=== PATIENT | male | born 1970 | race American Indian/Alaskan Native ===

== ENCOUNTER 2021-06-18 14:15 | Emergency (ER) | payer SELFPAY | END 2021-06-18 15:55 | LOC: ED 14:15 | DX: M79.2 Neuralgia and neuritis, unspecified (principal); Z53.21 Procedure and treatment not carried out due to patient leaving prior to being seen by health care provider ==

== ENCOUNTER 2021-10-09 03:06 | Emergency (ER) | payer SELFPAY ==
[2021-10-09 03:11] VITALS: BP 154/105
[2021-10-09] MEDS ORDERED: HYDROcodone/ACETAMINOPHEN 5-325 MG TAB PO ONE (04:16)
--- NOTE | 2021-10-09 04:27 | Emergency Department Report ---
ED General Adult HPI - General Chief complaint: Extremity Problem,Nontraumatic Stated complaint: PAIN Time Seen by Provider: 10/09/21 04:16 Source: patient Mode of arrival: Ambulatory Limitations: No Limitations - History of Present Illness Initial comments: Is a 51-year-old male with a history of hypertension and diabetes type 2 with diabetic neuropathy generally controlled by gabapentin. Patient has primary care doctor follow-up at the [facility]. Patient complains tonight of bilateral lower extremity burning and tingling radiating to bilateral feet rated at 5/10. Patient states he took a 1 gabapentin but not improving pain. Patient denies fall injury or trauma. There is no weakness no paralysis. Patient drove self to ED patient alert oriented x3 patient is amatory with steady gait and no other complaint. States cannot see [facility] until Thursday. - Related Data Home Medications Medication Instructions Recorded Confirmed Last Taken Loratadine (Nf) [Claritin] 10 mg PO DAILY 10/26/14 10/26/14 Unknown Previous Rx's Medication Instructions Recorded Last Taken Type Acetaminophen/Codeine [Tylenol #3] 1 tab PO Q6H PRN #15 tab 10/26/14 Unknown Rx Amoxicillin [Amoxicillin TAB] 875 mg PO BID #20 tablet 10/26/14 Unknown Rx Fluticasone [Flonase] 1 spray NS QDAY #1 bottle 10/26/14 Unknown Rx Acetaminophen/Codeine [Tylenol 1 tab PO Q6H PRN #12 tab 10/09/21 Unknown Rx /Codeine # 3 tab] Allergies Allergy/AdvReac Type Severity Reaction Status Date / Time azithromycin [From Zithromax] Allergy Shortness Verified 10/26/14 12:47 of Breath erythromycin base Allergy tachycardia Verified 10/26/14 11:25 ED Review of Systems ROS: Stated complaint: PAIN Other details as noted in HPI Constitutional: denies: chills, fever Eyes: denies: eye pain, eye discharge, vision change ENT: denies: ear pain, throat pain Respiratory: denies: cough, shortness of breath, wheezing Cardiovascular: denies: chest pain, palpitations Endocrine: no symptoms reported Gastrointestinal: denies: abdominal pain, nausea, diarrhea Genitourinary: denies: urgency, dysuria Musculoskeletal: arthralgia, myalgia. denies: back pain, joint swelling Skin: denies: rash, lesions Neurological: denies: headache, weakness, numbness, paresthesias, confusion, vertigo Psychiatric: denies: anxiety, depression Hematological/Lymphatic: denies: easy bleeding, easy bruising ED Past Medical Hx - Past Medical History Hx Hypertension: Yes Hx Diabetes: Yes Additional medical history: Neuropathy - Surgical History Additional Surgical History: hernia - Social History Smoking Status: Light Tobacco Smoker Substance Use Type: None - Medications Home Medications: Home Medications Medication Instructions Recorded Confirmed Last Taken Type Acetaminophen/Codeine [Tylenol #3] 1 tab PO Q6H PRN #15 tab 10/26/14 Unknown Rx Amoxicillin [Amoxicillin TAB] 875 mg PO BID #20 tablet 10/26/14 Unknown Rx Fluticasone [Flonase] 1 spray NS QDAY #1 bottle 10/26/14 Unknown Rx Loratadine (Nf) [Claritin] 10 mg PO DAILY 10/26/14 10/26/14 Unknown History Acetaminophen/Codeine [Tylenol 1 tab PO Q6H PRN #12 tab 10/09/21 Unknown Rx /Codeine # 3 tab] ED Physical Exam - General Limitations: No Limitations General appearance: alert, in no apparent distress - Head Head exam: Present: normocephalic, normal inspection - Eye Eye exam: Present: normal appearance, EOMI Pupils: Present: normal accommodation - ENT ENT exam: Present: normal exam, mucous membranes moist - Neck Neck exam: Present: normal inspection, full ROM. Absent: tenderness - Respiratory Respiratory exam: Present: normal lung sounds bilaterally. Absent: wheezes, stridor, chest wall tenderness - Cardiovascular Cardiovascular Exam: Present: regular rate, normal rhythm, normal heart sounds. Absent: systolic murmur, diastolic murmur, rubs, gallop - GI/Abdominal GI/Abdominal exam: Present: soft, normal bowel sounds. Absent: distended, tenderness - Rectal Rectal exam: Present: deferred - Extremities Exam Extremities exam: Present: full ROM, normal capillary refill, other (Distal pulses intact +2 [employer] SUPERVISOR less than 3 seconds. Strength is 5 / 5 bilat, range of motion is intact and unrestricted.). Absent: tenderness, pedal edema, joint swelling, calf tenderness - Back Exam Back exam: Present: normal inspection, full ROM. Absent: muscle spasm, paraspinal tenderness, vertebral tenderness - Neurological Exam Neurological exam: Present: alert, oriented X3, CN II-XII intact, normal gait, reflexes normal. Absent: motor sensory deficit - Expanded Neurological Exam Expanded Patient oriented to: Present: person, place, time Speech: Present: fluid speech Sensory exam: Lower Extremity Light Touch: Normal, Lower Extremity Pin Prick: Normal, Lower Extremity Temperature: Normal, LE 2 Point Discrimination: Normal Motor strength exam: RUE: 5, LUE: 5, RLE: 5, LLE: 5 DTR: ankle (R): 1+, ankle (L): 1+ Best Eye Response (Angie): (4) open spontaneously Best Motor Response ([place]): (6) obeys commands Best Verbal Response ([place]): (5) oriented Angie Total: 15 - Psychiatric Psychiatric exam: Present: normal affect, normal mood - Skin Skin exam: Present: warm, dry, intact, normal color. Absent: rash ED Course Vital Signs 10/09/21 03:09 Temperature 98.0 F Pulse Rate 82 Respiratory 18 Rate Blood Pressure 154/105 O2 Sat by Pulse 97 Oximetry ED Medical Decision Making - Medical Decision Making Patient has history of diabetic neuropathy controlled with gabapentin. Patient will steel pickler prescription in a.m. Patient will be DC'd home at this time in stable condition patient is currently alert oriented x3 with no acute distress distal pulses are intact [employer] is less than 3 seconds range of motion is intact patient is ambulatory with steady gait. Patient symptoms are improved at this time patient will be DC'd in stable condition. Critical care attestation.: If time is entered above; I have spent that time in minutes in the direct care of this critically ill patient, excluding procedure time. ED Disposition Clinical Impression: Lower extremity neuropathy Qualifiers: Laterality: bilateral Qualified Code(s): G57.93 - Unspecified mononeuropathy of bilateral lower limbs Disposition: HOME / SELF CARE / HOMELESS Is pt being admited?: No Does the pt Need Aspirin: No Condition: Stable Instructions: Peripheral Neuropathy Additional Instructions: Take medications as prescribed, follow[facility] with [facility] tomorrow. Call to get sooner appointment and medication refill. Call TAP line if unable to speak with security solutions architect in a.m., Return to emergency department should symptoms worsen. Prescriptions: Acetaminophen/Codeine [Tylenol /Codeine # 3 tab] 1 tab PO Q6H PRN #12 tab PRN Reason: pain Referrals: CATY KEARNS MD [Staff Physician] - 3-5 Days Forms: Work/School Release Form(ED) Time of Disposition: 04:29
== END 2021-10-09 05:54 | disposition home or self-care (01) ==
LOC: ED 03:06
DX: G57.93 Unspecified mononeuropathy of bilateral lower limbs (principal); I10 Essential (primary) hypertension; E11.9 Type 2 diabetes mellitus without complications; Z87.891 Personal history of nicotine dependence; Z79.899 Other long term (current) drug therapy; Z91.09 Other allergy status, other than to drugs and biological substances
CPT/HCPCS: 99282